=== PATIENT | female | born 1935 | race Caucasian/White ===

== ENCOUNTER 2019-09-24 15:56 | Emergency (ER) | payer MEDICARE ==
[2019-09-24] MEDS ORDERED: Sodium Chloride 0.9% 1000 ML 1,000 ML IV SCH (16:15)
[2019-09-24] MEDS ORDERED: Sodium Chloride 0.9% 1000 ML 1,000 ML ONE (16:17)
[2019-09-24 16:37] LABS: Absolute Neutrophil Ct (ANC) 6.88 (1.4-6.9); BASOPHIL % 0.4 % (0.0-0.4); Basophil (Absolute #) 0.04 (0-0.4); Eosinophil % 0.6 % (0.00-5.0); Eosinophil (Absolute #) 0.07 (0-0.5); Hematocrit 34.9 % (35-47); Hemoglobin 10.9 gm/dl (12.0-16.0); Lymphocyte (Absolute #) 2.88 (1.0-4.6); Lymphocytes % 26.5 % (24.0-44.0); Mean Corpuscular Hemoglobin 30.6 pg (26-32); Mean Corpuscular Hgb Concent. 31.2 g/dl (32-36); Mean Platelet Volume 14.1 fl (7.5-11.0); Monocyte (Absolute #) 1.01 (0.0-1.3); Monocytes % 9.3 % (0.0-12.0); Neutrophil % 63.2 % (36.0-66.0); Red Blood Count 3.56 M/mm3 (4.1-5.4); Red Cell Distribution Width 14.5 % (11.5-14.0); White Blood Count 10.9 K/mm3 (4.0-10.5)
[2019-09-24 16:48] LABS: INR 1.14 (0.8-3.0); PROTIME 12.9 SECONDS (9.95-12.35)
[2019-09-24 16:51] LABS: PTT 33.3 SECONDS (25.3-37.0)
[2019-09-24 17:03] LABS: Platelet Count 190 K/mm3 (150-450)
[2019-09-24 17:24] LABS: ALBUMIN 3.9 g/dL (3.5-5.0); ANION GAP 13.5 MEQ/L (5-15); BILIRUBIN,TOTAL 0.4 mg/dL (0.2-1.3); Calcium 9.1 mg/dL (8.4-10.2); Creatinine 1 1.45 mg/dL (0.52-1.04); MAGNESIUM 1.4 mg/dL (1.6-2.3); Potassium 5.9 mmol/L (3.5-5.1); Total Protein 7.1 g/dL (6.3-8.2)
--- NOTE | 2019-09-24 18:14 | ERPHSYRPT ---
- History of Present Illness Time Seen by Provider: 09/24/19 16:15 Patient Subjective Stated Complaint: Bradycardia Triage Nursing Assessment: Patient brought into ED via EMS and transferred to bed with assist of 3. Patient A+O x3. Patient's skin pale, warm and dry. Patient complains of feeling dizzy and nauseaus today. Patient's daughter took her pulse at home and was in the 40s. Patient had an incontinent stool today as well. Patient states she is really tired todayl. Lungs clear a/p juma. No edema noted. Heart tones audible and lis. Patient denies pain or discomfort. Physician History: Is an 84-year-old female who presents by ambulance from her daughter's home where she recently moved to live of not feeling well being lightheaded very tired and weak. She has a history of bradycardia and the daughter reports that in November of last year she was at [facility] at 1 point had a heart rate in the 20s a pacemaker was discussed but was never placed. Does have a history of diabetes irritable bowel Timing/Duration: yesterday Activities at Onset: none Severity of Pain-Max: none Severity of Pain-Current: none Modifying Factors: Improves With: change in position Nitro Today/Relief: no nitro taken today Aspirin Treatment Today: unknown Associated Symptoms: shortness of breath, weakness Allergies/Adverse Reactions: amoxicillin Allergy (Verified 09/24/19 16:03) cefaclor [From Ceclor] Allergy (Verified 09/24/19 16:03) Hx Influenza Vaccination/Date Given: Yes Hx Pneumococcal Vaccination/Date Given: Yes Immunizations Up to Date: Yes Travel Risk - International Travel Have you traveled outside of the country in past 3 weeks: No - Coronavirus Screening Are you exhibiting any of the following symptoms?: No Close contact with a COVID-19 positive Pt in past 14-21 Days: No - Review of Systems Constitutional: Lethargy, Weakness Eyes: No Symptoms Ears, Nose, & Throat: No Symptoms Respiratory: No Cough, No Dyspnea Cardiac: Palpitations Abdominal/Gastrointestinal: Diarrhea (1 loose stool), No Abdominal Pain, No Nausea, No Vomiting Genitourinary Symptoms: No Dysuria Musculoskeletal: No Back Pain, No Neck Pain Skin: No Rash Neurological: Dizziness Psychological: No Symptoms Endocrine: No Symptoms Hematologic/Lymphatic: No Symptoms Immunological/Allergic: No Symptoms All Other Systems: Reviewed and Negative - Past Medical History Pertinent Past Medical History: Yes Neurological History: No Pertinent History ENT History: No Pertinent History Cardiac History: High Cholesterol, Hypertension Respiratory History: No Pertinent History Endocrine Medical History: Diabetes Type II Musculoskeletal History: No Pertinent History GI Medical History: No Pertinent History History: Renal Disease Psycho-Social History: No Pertinent History Female Reproductive Disorders: No Pertinent History - Past Surgical History Past Surgical History: Yes Neuro Surgical History: No Pertinent History Cardiac: No Pertinent History Respiratory: No Pertinent History Gastrointestinal: Cholecystectomy Genitourinary: No Pertinent History Musculoskeletal: Orthopedic Surgery Female Surgical History: No Pertinent History Other Surgical History: Thyroidectomy, Carpal tunnel surgery right hand, right leg surgery with pins and screws - Social History Smoking Status: Never smoker Exposure to second hand smoke: No Drug Use: none Patient Lives Alone: No - Nursing Vital Signs Nursing Vital Signs: Initial Vital Signs Pulse Rate 37 L 09/24/19 16:04 Respiratory Rate 20 09/24/19 16:04 Blood Pressure 125/49 09/24/19 16:04 O2 Sat by Pulse Oximetry 97 09/24/19 16:04 Pain Scale Pain Intensity 0 - Physical Exam General Appearance: no apparent distress, alert Eye Exam: PERRL/EOMI, eyes nml inspection Ears, Nose, Throat Exam: normal ENT inspection, moist mucous membranes Neck Exam: normal inspection, non-tender, supple Respiratory Exam: normal breath sounds, lungs clear, No respiratory distress Cardiovascular Exam: normal heart sounds, bradycardia, No edema Gastrointestinal/Abdomen Exam: soft, No tenderness, No mass Back Exam: normal inspection, No CVA tenderness, No vertebral tenderness Extremity Exam: normal inspection, normal range of motion Neurologic Exam: alert, oriented x 3, cooperative, normal mood/affect, nml cerebellar function, sensation nml, No motor deficits Skin Exam: normal color, warm, dry Lymphatic Exam: No adenopathy SpO2: 98 - Course Nursing assessment & vital signs reviewed: Yes EKG Interpreted by Me: RATE (37), Other (Junctional bradycardia) - Radiology Exams Chest X-ray Interpretation: Interpreted by me, Negative Ordered Tests: Active Orders 24 hr Category Date Time Status Mechanical Systems Engineer STAT Care 09/24/19 16:11 Active EKG-ER Only STAT Care 09/24/19 16:10 Active IV Insertion STAT Care 09/24/19 16:10 Active CHEST 1 VIEW (PORTABLE) Stat Exams 09/24/19 16:22 Taken CBC W DIFF Stat Lab 09/24/19 16:10 Completed CMP Stat Lab 09/24/19 16:10 Completed Lactic Acid Stat Lab 09/24/19 16:10 Completed MAGNESIUM Stat Lab 09/24/19 16:10 Completed NT PRO BNP Stat Lab 09/24/19 16:10 Completed PROTIME WITH INR Stat Lab 09/24/19 16:10 Completed PTT Stat Lab 09/24/19 16:10 Completed TROPONIN Q3H Lab 09/24/19 16:10 Completed TROPONIN Q3H Lab 09/24/19 19:15 Ordered TROPONIN Q3H Lab 09/24/19 22:15 Ordered TROPONIN Q3H Lab 09/25/19 01:15 Ordered TROPONIN Q3H Lab 09/25/19 04:15 Ordered TSH [TSH, 3RD Generation] Stat Lab 09/24/19 16:10 Completed UA W/RFX UR CULTURE Stat Lab 09/24/19 16:11 Uncollected Medication Summary Generic Name Dose Route Start Last Admin Trade Name Freq PRN Reason Stop Dose Admin Sodium Chloride 1,000 mls @ 100 mls/hr 09/24/19 16:15 09/24/19 16:19 Sodium Chloride 0.9% 1000 Ml IV 10/24/19 16:14 100 mls/hr .Q10H LUDY Administration Lab/Rad Data: Laboratory Result Diagrams 09/24/19 16:10 09/24/19 16:10 Laboratory Results 09/24/19 09/24/19 09/24/19 Range/Units 16:10 16:10 16:10 WBC (4.0-10.5) K/mm3 RBC (4.1-5.4) M/mm3 Hgb (12.0-16.0) gm/dl Hct (35-47) % MCV (78-100) fl MCH (26-32) pg MCHC (32-36) g/dl RDW (11.5-14.0) % Plt Count (150-450) K/mm3 MPV (7.5-11.0) fl Gran % (36.0-66.0) % Eos # (Auto) (0-0.5) Absolute Lymphs (auto) (1.0-4.6) Absolute Monos (auto) (0.0-1.3) Lymphocytes % (24.0-44.0) % Monocytes % (0.0-12.0) % Eosinophils % (0.00-5.0) % Basophils % (0.0-0.4) % Absolute Granulocytes (1.4-6.9) Basophils # (0-0.4) PT 12.9 H (9.95-12.35) SECONDS INR 1.14 (0.8-3.0) APTT 33.3 (25.3-37.0) SECONDS Sodium (137-145) mmol/L Potassium (3.5-5.1) mmol/L Chloride (98-107) mmol/L Carbon Dioxide (22-30) mmol/L Anion Gap (5-15) MEQ/L BUN (7-17) mg/dL Creatinine (0.52-1.04) mg/dL Estimated GFR ML/MIN Glucose (74-106) mg/dL Lactic Acid (0.4-2.0) Calcium (8.4-10.2) mg/dL Magnesium (1.6-2.3) mg/dL Total Bilirubin (0.2-1.3) mg/dL AST (14-36) U/L ALT (0-35) U/L Alkaline Phosphatase (38-126) U/L Troponin I 0.023 (0.000-0.034) ng/mL NT-Pro-B Natriuret Pep (0-1800) pg/mL Serum Total Protein (6.3-8.2) g/dL Albumin (3.5-5.0) g/dL TSH 3rd Generation 3.190 (0.47-4.68) mIU/L 09/24/19 09/24/19 09/24/19 Range/Units 16:10 16:10 16:10 WBC 10.9 H (4.0-10.5) K/mm3 RBC 3.56 L (4.1-5.4) M/mm3 Hgb 10.9 L (12.0-16.0) gm/dl Hct 34.9 L (35-47) % MCV 98.0 (78-100) fl MCH 30.6 (26-32) pg MCHC 31.2 L (32-36) g/dl RDW 14.5 H (11.5-14.0) % Plt Count 190 (150-450) K/mm3 MPV 14.1 H (7.5-11.0) fl Gran % 63.2 (36.0-66.0) % Eos # (Auto) 0.07 (0-0.5) Absolute Lymphs (auto) 2.88 (1.0-4.6) Absolute Monos (auto) 1.01 (0.0-1.3) Lymphocytes % 26.5 (24.0-44.0) % Monocytes % 9.3 (0.0-12.0) % Eosinophils % 0.6 (0.00-5.0) % Basophils % 0.4 (0.0-0.4) % Absolute Granulocytes 6.88 (1.4-6.9) Basophils # 0.04 (0-0.4) PT (9.95-12.35) SECONDS INR (0.8-3.0) APTT (25.3-37.0) SECONDS Sodium 138 (137-145) mmol/L Potassium 5.9 H (3.5-5.1) mmol/L Chloride 110 H (98-107) mmol/L Carbon Dioxide 20 L (22-30) mmol/L Anion Gap 13.5 (5-15) MEQ/L BUN 46 H (7-17) mg/dL Creatinine 1.45 H (0.52-1.04) mg/dL Estimated GFR 36.7 ML/MIN Glucose 159 H (74-106) mg/dL Lactic Acid 1.8 (0.4-2.0) Calcium 9.1 (8.4-10.2) mg/dL Magnesium 1.4 L (1.6-2.3) mg/dL Total Bilirubin 0.40 (0.2-1.3) mg/dL AST 48 H (14-36) U/L ALT 57 H (0-35) U/L Alkaline Phosphatase 332 H (38-126) U/L Troponin I (0.000-0.034) ng/mL NT-Pro-B Natriuret Pep 862 (0-1800) pg/mL Serum Total Protein 7.1 (6.3-8.2) g/dL Albumin 3.9 (3.5-5.0) g/dL TSH 3rd Generation (0.47-4.68) mIU/L - Progress Progress: unchanged Air Movement: good Blood Culture(s) Obtained: No Antibiotics given: No - Departure Departure Disposition: Transfer (Patient transferred to [facility] in [place] the accepting physician was Dr. Hester) Clinical Impression: Junctional (irene) bradycardia Condition: Fair Critical Care Time: No Referrals: CONSUELO RAMIREZ MD [Primary Care Provider] - Instructions: Bradycardia (DC)
[2019-09-24 19:06] VITALS: BP 140/51; PULSE 38; O2SAT 97
--- NOTE | 2019-09-24 21:40 | XRAY ---
Indication: Bradycardia. Comparison: None Portable chest hyperinflated without focal infiltrate, consolidation, or large effusion. Heart is not enlarged for AP portable technique. Solomon mediastinal calcified nodes. Bony thorax intact with mild osteopenia, degenerative changes, and old left humerus fracture. Impression: Nonacute chest with chronic features.
== END 2019-09-24 19:03 | disposition short-term general hospital (02) ==
LOC: ED 15:56
DX: I10 Essential (primary) hypertension (principal)
CPT/HCPCS: 36000; 36415; 71045; 80053; 83605; 83735; 83880; 84443; 84484; 85025; 85610; 85730; 93005; 93041; 96360; 96361; 99285